=== PATIENT | male | born 1990 | race Caucasian/White ===

== ENCOUNTER 2018-04-07 18:26 | Emergency (ER) | payer MEDICAID ==
[2018-04-07 19:08] VITALS: BP 125/79
[2018-04-07] MEDS ORDERED: cefTRIAXone 500 MG, Lidocaine 1% 1 ML IM ONE ×2 (19:34)
--- NOTE | 2018-04-07 19:57 | EDM.PDOC ---
ED HPI GENERAL MEDICAL PROBLEM - General Chief Complaint: Genitourinary Problem Stated Complaint: DISCHARGE FROM [facility] Time Seen by Provider: 04/07/18 19:18 Source of Information: Reports: Patient History Limitations: Reports: No Limitations - History of Present Illness INITIAL COMMENTS - FREE TEXT/NARRATIVE: He complains of marta and heavy penile discharge for 1 day. He has multiple sexual partners and says that a condom broke recently. Penis Pain Score (Numeric/FACES): 10 - Related Data Allergies Allergy/AdvReac Type Severity Reaction Status Date / Time atomoxetine [From Strattera] Allergy Dizziness Verified 04/07/18 19:06 Home Meds: Home Meds NK [No Known Home Meds] 04/07/18 [History] Past Medical History HEENT History: Reports: Impaired Vision Musculoskeletal History: Reports: Fracture Psychiatric History: Reports: ADD, ADHD, Anxiety, Panic Attack - Past Surgical History Musculoskeletal Surgical History: Reports: Arthroscopic Knee Social & Family History - Tobacco Use Smoking Status *Q: Current Every Day Smoker Years of Tobacco use: 15 Packs/Tins Daily: 1 - Caffeine Use Caffeine Use: Reports: Coffee - Recreational Drug Use Recreational Drug Use: No ED ROS GENERAL - Review of Systems Review Of Systems: ROS reveals no pertinent complaints other than HPI. ED EXAM, RENAL/ - Physical Exam Exam: See Below Exam Limited By: No Limitations General Appearance: Alert, WD/WN, No Apparent Distress (Male) Exam: Urethral Discharge (heavy yellow discharge c/w GC) Course - Vital Signs Last Recorded V/S: Last Vital Signs Temp 37.3 C 04/07/18 19:08 Pulse 73 04/07/18 19:08 Resp 16 04/07/18 19:08 BP 125/79 04/07/18 19:08 Pulse Ox 99 04/07/18 19:08 - Orders/Labs/Meds Orders: Active Orders 24 hr Category Date Time Status CHLAMYDIA/GC AMPLIFICATION Routine Lab 04/07/18 20:02 Ordered Meds: Medications Discontinued Medications Generic Name Dose Route Start Last Admin Trade Name Freq PRN Reason Stop Dose Admin Ceftriaxone Sodium 500 mg/ 0 mg 04/07/18 19:34 04/07/18 19:55 Lidocaine HCl 1 ml IM 04/07/18 19:35 1 inj ONETIME ONE Administration - Re-Assessments/Exams Free Text/Narrative Re-Assessment/Exam: 04/07/18 19:54 GC chlamydia tests sent. Patient received 500 mg rocephin IM. Will treat with single dose azithromycin. Departure - Departure Time of Disposition: 19:55 Disposition: Home, Self-Care 01 Condition: Fair Clinical Impression: Gonococcal urethritis in male - Discharge Information Referrals: PCP,None [Primary Care Provider] - Forms: ED Department Discharge Additional Instructions: A test was sent out that will confirm if you have Gonorrhea. If you do then the Health Department will contact you and ask about your contacts so that they can also be treated. Be sure to take all 4 Azithromycin tablets at one time. Can can take the remaining 2 tomorrow if you wish. - My Orders Last 24 Hours: My Active Orders 04/07/18 20:02 CHLAMYDIA/GC AMPLIFICATION Routine - Assessment/Plan Last 24 Hours: My Active Orders 04/07/18 20:02 CHLAMYDIA/GC AMPLIFICATION Routine
[2018-04-11 10:11] LABS: CHLAMYDIA TRACHOMATIS, NAA Positive (Negative); NEISSERIA GONORRHOEAE, NAA Positive (Negative)
== END 2018-04-07 20:24 | disposition home or self-care (01) ==
LOC: JP.ED 18:26
DX: A54.01 Gonococcal cystitis and urethritis, unspecified (principal); F17.210 Nicotine dependence, cigarettes, uncomplicated; Z88.8 Allergy status to other drugs, medicaments and biological substances
CPT/HCPCS: 87491; 87591; 96372; 99284; J0696